=== PATIENT | male | born 1985 | race Caucasian/White ===

== ENCOUNTER 2020-07-05 07:59 | Emergency (ER) | payer SELFPAY ==
[~2020-07-05] VITALS: Ht 172.7 cm; Wt 79.4 kg
[2020-07-05] MEDS ORDERED: ACETAMINOPHEN 325 MG TABLET PO ONE (09:00)
--- NOTE | 2020-07-05 09:08 | NUR ---
patient came to er because he couldnt sleep. felt feverish/hot cold. dehydrated
[2020-07-05 09:24] LABS: ALANINE AMINOTRANSFERASE 88 U/L (12-78); ALBUMIN 2.9 g/dL (3.4-5.0); ANION GAP 2 mmol/L (5-15); BASOPHILS % (AUTO) 1 % (0-1); CALCIUM 8.4 mg/dL (8.5-10.1); CHLORIDE 111 mmol/L (98-107); CREATININE 1.01 mg/dL (0.7-1.3); EOSINOPHILS % (AUTO) 0 % (1-7); LYMPHOCYTES % (AUTO) 11 % (22-44); MD NO; MEAN CORPUSCULAR HEMOGLOBIN 26.8 pg (27.5-34.5); MEAN CORPUSCULAR HGB CONC 33.2 g/dL (33.2-36.2); MEAN PLATELET VOLUME 7.8 fL (7.4-10.4); MONOCYTES % (AUTO) 8 % (2-9); NEUTROPHILS % (AUTO) 80 % (42-75); PLATELET COUNT 145 x10^3/uL (130-400); RED BLOOD COUNT 4.26 x10^6/uL (4.38-5.82); RED CELL DISTRIBUTION WIDTH 13.9 % (9.4-14.8)
[2020-07-05 09:26] LABS: ALKALINE PHOSPHATASE 717 U/L (45-117); BILIRUBIN,TOTAL 0.6 mg/dL (0.2-1.0); TOTAL PROTEIN 7.5 g/dL (6.4-8.2)
--- NOTE | 2020-07-05 09:28 | NUR ---
PHARMACY TO BRING MEDICATION OPAL/30 MIN
[2020-07-05] MEDS ORDERED: FILTER 0.22 MICRON IV ONE (09:30)
[2020-07-05] MEDS ORDERED: BAMLANIVIMAB 700 MG in SODIUM CHLORIDE 0.9% 180 ML IVPB ONE (10:00)
[2020-07-05] MEDS ORDERED: ACETAMINOPHEN 325 MG TABLET ONE (10:15)
--- NOTE | 2020-07-05 10:28 | NUR ---
BAM RUNNING 10 MINUTES, PATIENT FEELING OK. WATCHING TV. ON MONITOR.
--- NOTE | 2020-07-05 11:23 | NUR ---
feels tired but otherwise ok. tachy at 105-110. 92% RA. monitoring post bam medication administration.
[2020-07-05 12:40] VITALS: BP 128/78
--- NOTE | 2020-07-05 12:40 | NUR ---
patient resting quietly.
--- NOTE | 2020-07-05 13:21 | NUR ---
dishcarge including quarantine and when to return to er reviewed. shows understanding.
== END 2020-07-05 13:23 | disposition home or self-care (01) ==
LOC: ED 12:18
DX: U07.1 COVID-19 (principal); R00.0 Tachycardia, unspecified; Z21 Asymptomatic human immunodeficiency virus [HIV] infection status
CPT/HCPCS: 36415; 71045; 80053; 85025; 87081; 87635; 87880; 99285; J7050; M0239; Q0239